=== PATIENT | female | born 1955 | race African-American/Black ===

== ENCOUNTER 2019-09-18 08:27 | Outpatient (CLI) | payer MEDICARE, SELFPAY ==
[2019-09-18 08:48] LABS: Basophils Percent Auto 0.4 % (0.2-1.2); Eosinophils Absolute Auto 0.1 K/mm3 (0-0.3); Eosinophils Percent Auto 0.9 % (0-4.4); Hematocrit 45.9 % (37.0-47.0); Hemoglobin 14.4 g/dL (12.0-15.0); Immature Granulocyte Absolute 0.02 K/mm3 (0.00-0.031); Immature Granulocyte Percent A 0.4 % (0-0.5); Lymphocytes Absolute Auto 1.53 K/mm3 (0.9-3.2); Lymphocytes Percent Auto 28.5 % (18.3-44.2); Mean Corpuscular HGB Conc 31.4 g/dl (32-36); Mean Corpuscular Hemoglobin 27.4 pg (26-34); Mean Corpuscular Volume 87.4 fl (80-100); Mean Platelet Volume 9.9 fl (7.4-10.4); Monocytes Absolute Auto 0.7 K/mm3 (0.1-0.6); Monocytes Percent Auto 12.1 % (2.6-8.5); Neutrophils Absolute Auto 3.1 K/mm3 (1.3-6.7); Neutrophils Percent Auto 57.7 % (45.5-73.1); Platelet Count Result 257 k/mm3 (150-375); Red Blood Count 5.25 M/mm3 (4.2-5.4); Red Cell Distribution Width 12.9 % (11.5-14.5); White Blood Count 5.4 K/mm3 (4.5-10.0)
[2019-09-18 08:58] LABS: Alanine Aminotransferase 17 U/L (4-35); Albumin Level 4.4 g/dL (3.5-5.1); Alkaline Phosphatase 124 U/L (38-126); Aspartate Amino Transferase 27 U/L (14-36); Bilirubin,Total 0.7 mg/dL (0.2-1.3); Blood Urea Nitrogen 18 mg/dL (7-17); Calcium 9.3 mg/dL (8.4-10.2); Carbon Dioxide 29 mmol/L (22-30); Chloride 104 mmol/L (98-107); Cholesterol 268 mg/dL (0-200); Estimated Glomerular Filt Rate > 60; Glucose 117 mg/dL (65-105); HDL Direct 60 mg/dL; Magnesium 2.1 mg/dL (1.6-2.3); Potassium 4.2 mmol/L (3.4-5.0); Sodium 139 mmol/L (137-145); Triglycerides 102 mg/dL (<150)
[2019-09-18 09:10] LABS: LDL Cholesterol Direct 172 mg/dL
[2019-09-18 10:29] LABS: Folic Acid > 20.0 ng/mL (2.76->20)
== END 2019-09-18 08:28 | disposition home or self-care (01) ==
PROVIDERS: PCP Internal Medicine; Visit Provider Internal Medicine
DX: E78.5 Hyperlipidemia, unspecified (principal); I10 Essential (primary) hypertension; R53.83 Other fatigue
CPT/HCPCS: 36415; 80053; 80061; 82607; 82746; 83735; 84443; 85025

== ENCOUNTER 2019-12-09 10:27 | Outpatient (CLI) | payer MEDICARE, SELFPAY ==
--- NOTE | ~2019-12-09 | MM_ITS ---
EXAMINATION: MM screening denis BI w william HISTORY: Screening mammogram, family history of breast cancer in her sister. TECHNIQUE: Craniocaudal and mediolateral oblique 3-D tomosynthesis images were obtained and synthetic 2-D images were generated. CAD analysis was submitted and interpreted. COMPARISON: 11/25/2018, 06/28/2017, 01/26/2016 BREAST PARENCHYMAL COMPOSITION: There are scattered areas of fibroglandular density. FINDINGS: There is no evidence of suspicious mass, calcification, or architectural distortion to sugg est malignancy in either breast. There has been no suspicious interval change. IMPRESSION: 1. No mammographic evidence of malignancy. 2. Recommend routine screening mammography in one year. BI-RADS Category 1: Negative Reviewed, dictated and finalized at location A.
== END 2019-12-09 10:28 | disposition home or self-care (01) ==
PROVIDERS: PCP Internal Medicine; Visit Provider Obstetrics & Gynecology
DX: Z12.31 Encounter for screening mammogram for malignant neoplasm of breast (principal)
CPT/HCPCS: 77063; 77067

== ENCOUNTER 2021-01-04 14:31 | Outpatient (CLI) | payer MEDICARE, SELFPAY ==
--- NOTE | ~2021-01-04 | MM_ITS ---
EXAMINATION: MM screening denis BI w william HISTORY: Screening mammogram TECHNIQUE: Craniocaudal and mediolateral oblique 3-D tomosynthesis images were obtained and synthetic 2-D images were generated. CAD analysis was submitted and interpreted. COMPARISON: 12/09/2019, 11/25/2018, 06/28/2017 bilateral screening mammogram examinations BREAST PARENCHYMAL COMPOSITION: The breasts are almost entirely fatty. FINDINGS: There is no evidence of suspicious mass, calcification, or architectural distortion to sugg est malignancy in either breast. There has been no suspicious interval change. IMPRESSION: 1. No mammographic evidence of malignancy. 2. Recommend routine screening mammography in one year. BI-RADS Category 1: Negative Reviewed, dictated and finalized at location A.
--- NOTE | ~2021-01-04 | DEXA_ITS ---
Bone Density Report Name: Yuli Price Age: 65 Sex: Female Ethnicity: Black Date of : 1955 Indication: postmenopausal; prior fracture; hysterectomy; Referring Provider: Chago Washington Study: Bone densitometry was performed. Exam Date: January 04, 2021 Accession number: [id number] Bone Density: Region BMD T-score Z-score Classification AP Spine (L2, L3, L4) 0.946 -1.2 -0.1 Osteopenia Femoral Neck (Left) 0.659 -1.7 -0.7 Osteopenia Total Hip (Left) 0.845 -0.8 -0.2 Normal World Health Organization criteria for BMD impression classify patients as: Normal (T-score at or above -1.0), Osteopenia (T-score between -1.0 and -2.5), or Osteoporosis (T-score at or below -2.5). 10-year Fracture Risk(1): Major Osteoporotic Fracture 6.0% Hip Fracture 0.7% Reported Risk Factors: [place] (Black), Neck BMD=0.659, BMI=48.6, previous fracture (1) FRAX(R) Version 3.08. Fracture probability calculated for an untreated patient. Fracture probability may be lower if the patient has received treatment. Previous Exams: Region Exam Age BMD T-score BMD Change BMD Change Date g/cm2 vs Baseline vs Previous AP Spine(L2, L3, L4) 01/04/2021 65 0.946 -1.2 -0.196(-17.2%) -0.024(-2.5%)* 08/15/2017 62 0.971 -1.0 -0.172(-15.1%) -0.142(-12.8%) 01/15/2012 56 1.113 0.3 -0.030(-2.6%)# -0.091(-7.6%)# 08/11/2009 54 1.205 1.1 0.062(5.4%)* 0.062(5.4%)* 07/10/2007 52 1.143 0.6 Total Hip(Left) 01/04/2021 65 0.845 -0.8 -0.165(-16.3%) -0.021(-2.5%)# 08/15/2017 62 0.867 -0.6 -0.144(-14.2%) -0.240(-21.7%) 01/15/2012 56 1.107 1.4 0.097(9.6%)# 0.065(6.3%)# 08/11/2009 54 1.042 0.8 0.031(3.1%)* 0.031(3.1%)* 07/10/2007 52 1.010 0.6 *Denotes significance at 95% confidence level, LSC for AP Spine = 0.022 g/cm2, LSC for Total Hip = 0.027 g/cm2 Clinical Information Provided by Patient: Has had a low trauma fracture Has used the following medications: HRT (i.e. estrogen/hormone therapy), Vitamin D, Calcium Has the following medical conditions: Hysterectomy Patient maximum height was 63 Menopause Age: 55 No regular weight bearing exercise Drinks caffeinated beverages Onset of menses at age 13 Number of children 3 Impression: The patient has low bone mass, based on the Left Femoral Neck T-score. The patient has an estimated ten-year risk of hip fracture of 0.7% and an estimated ten-year risk of major fracture of 6%, based on the WHO FRAX algorithm. The patient has risk factors, includi
== END 2021-01-04 14:32 | disposition home or self-care (01) ==
LOC: ANHIMG 14:34
PROVIDERS: PCP Internal Medicine; Visit Provider Obstetrics & Gynecology
DX: Z12.31 Encounter for screening mammogram for malignant neoplasm of breast (principal); Z78.0 Asymptomatic menopausal state; M85.852 Other specified disorders of bone density and structure, left thigh
CPT/HCPCS: 77063; 77067; 77080

== ENCOUNTER 2021-05-15 00:30 | Day surgery (SDC) | payer MEDICARE, SELFPAY ==
[2021-04-13 12:56] VITALS: BMI 49.1
--- NOTE | 2021-05-04 12:51 | PC.NURSE ---
PAT call done. Pt states no changes in health history or medication information since last PAT call done on 04-13-21. Instructions given to patient. Pt aware to arrive at 1100 and to take metoprolol the morning of colonoscopy. Verbalizes understanding. Questions answered.
--- NOTE | 2021-05-14 11:59 | WPDANESEPP ---
Anes - Eval Pre Procedure Procedure: Operation Date: 05/15/21 12:30 Proposed Procedures p Screening Colonoscopy - Nadeem Guillermo MD Date/Time: 05/14/21 11:59 Surgeon: Mima Pre Op Diagnosis: hx of colon polyps Patient Data Age: 66 Gender: F Height: 1.57 m Weight: 122 kg Allergies Allergy/AdvReac Type Severity Reaction Status Date / Time Penicillins Allergy Mild Unknown Verified 05/04/21 12:54 Home Medications Medication Instructions Recorded Confirmed Type aspirin 81 mg tablet,delayed 81 mg PO DAILY 02/16/19 05/04/21 History release amlodipine 2.5 mg tablet 2.5 mg PO DAILY #90 tablet 05/08/21 Rx metoprolol tartrate 25 mg tablet 25 mg PO BID #180 tablet 05/08/21 Rx valsartan 160 mg tablet 160 mg PO DAILY #30 tablet 05/08/21 Rx Patient hx anesthesia problems: none Family hx anesthesia problems: none Results Review: All pre-operative results and documents have been reviewed as part of the pre-operative evaluation. FORMERLY [facility], [facility] Past Medical History Medical History History of vaginal delivery Hyperlipidemia Hypertension Sleep apnea Surgical History Surgical History H/O section H/O: hysterectomy History of cholecystectomy S/P hip replacement Family History Family History Grandparent Diabetes mellitus Mother Hypertension Sibling Hypertension Carcinoma of colon Family history of malignant neoplasm of breast in first degree relative Social History Social History Smoking status: Never smoker Second hand tobacco smoke exposure: No Alcohol intake: current Drinks per week: 1 Substance use: never Substance use type: marijuana Living arrangements: with family Spiritual care concerns: No Exam Day of Procedure 05/14/21 11:59
[2021-05-15 11:09] VITALS: BP 163/82; PULSE 69; RESP 24; TEMP 36.1; O2SAT 100; BMI 48.0
[2021-05-15] MEDS: LACTATED RINGERS 1,000 ML 150 ML IV CONT (11:17)
--- NOTE | 2021-05-15 11:21 | P.PNAN_ITS ---
Anes - Eval Final PreProcedure Day of Procedure 05/15/21 11:21 Patient weight: morbidly obese Heart: regular rate and rhythm Lungs: clear to auscultation and normal air movement Airway: Mallampati scale class II Neurological: alert and oriented Last oral intake: >/= 8 hours ASA classification: III Emergent: no Anesthetic plan: proceed Anesthesia type and monitoring: general GIVS and standard monitoring Results Review: All pre-operative results and documents have been reviewed as part of the pre-operative evaluation. Informed Consent: The patient's anesthetic plan and its attendant risks and mallory efits were discussed with the patient/family/POA. Questions were solicited and answers provided to the satisfaction of the patient/family/POA.
--- NOTE | 2021-05-15 11:31 | WPDGICN ---
Assessment and Plan Assessment and plan (1) Family hx of colon cancer: Code(s): Z80.0 - Family history of malignant neoplasm of digestive organs Status: Acute Assessment and Plan: Patient has a family history of colon cancer in her sister. Patient herself had a colon polyp many years ago. Plan is for surveillance colonoscopy now and consider this at 5 year intervals in the future. (2) Obesity, Class III, BMI 40-49.9 (morbid obesity): Code(s): E66.01 - Morbid (severe) obesity due to excess calories Status: Acute Assessment and Plan: Weight loss with calorie restriction increased exercise are encouraged. GI Consult Note Consult date/time: 05/15/21 11:31 HPI: Yuli Price is a 66 year old female Presents for screening colonoscopy. Patient's family history is significant that her sister had colon cancer. Patient herself was found to have adenomatous colon polyp in 2006. Most recent colonoscopy 5 years ago was unremarkable. Patient presents today for screening colonoscopy. She states her weight appetite bowel movements are normal. She denies any blood in her stools. Review of Systems Review of Systems: All systems reviewed & are unremarkable except as noted in HPI and below PMFSH Past Medical History Medical History History of vaginal delivery Hyperlipidemia Hypertension Sleep apnea Surgical History Surgical History H/O section H/O: hysterectomy History of cholecystectomy S/P hip replacement Family History Family History Grandparent Diabetes mellitus Mother Hypertension Sibling Hypertension Carcinoma of colon Family history of malignant neoplasm of breast in first degree relative Social History Social History Smoking status: Never smoker Second hand tobacco smoke exposure: No Alcohol intake: current Drinks per week: 1 Substance use: never Substance use type: marijuana Living arrangements: with family Spiritual care concerns: No Meds Home Medications and Allergies Home Medications Medication Instructions Recorded Confirmed Type aspirin 81 mg tablet,delayed 81 mg PO DAILY 02/16/19 05/04/21 History release amlodipine 2.5 mg tablet 2.5 mg PO DAILY #90 tablet 05/08/21 05/15/21 Rx metoprolol tartrate 25 mg tablet 25 mg PO BID #180 tablet 05/08/21 05/15/21 Rx valsartan 160 mg tablet 160 mg PO DAILY #100 tablet 05/15/21 05/15/21 Rx Allergies Allergy/AdvReac Type Severity Reaction Status Date / Time Penicillins Allergy Mild Unknown Verified 05/15/21 11:08 Vital Signs Vital Signs - 24 hr 05/15/21 11:09 Temperature 97.0 F L Pulse Rate 69 Respiratory Rate 24 H Blood Pressure 163/82 H Pulse Oximetry 100 Exam Narrative: Physical exam reveals patient be alert. Vital signs stable. HEENT exam is unremarkable. Patient is anicteric. Lungs are clear to auscultation and percussion. Heart is without murmur or extra sounds. Abdominal exam Is obese. bowel sounds are present soft nontender with no organomegaly. Digital external rectal exam is normal.
[2021-05-15 11:58] VITALS: BP 137/76; PULSE 78; RESP 20; O2SAT 98
[2021-05-15 12:08] VITALS: BP 155/93; PULSE 84; RESP 25; O2SAT 99
[2021-05-15 12:18] VITALS: BP 164/89; PULSE 85; RESP 16; O2SAT 95
== END 2021-05-15 12:28 | disposition home or self-care (01) ==
PROVIDERS: PCP Internal Medicine; Visit Provider Internal Medicine Gastroenterology
PROC: 0DJD8ZZ Inspection of Lower Intestinal Tract, Via Natural or Artificial Opening Endoscopic (ICD-10-PCS; CPT 45378; principal; 2021-05-15 12:30)
DX: Z12.11 Encounter for screening for malignant neoplasm of colon (principal); D12.2 Benign neoplasm of ascending colon; Z80.0 Family history of malignant neoplasm of digestive organs; K64.8 Other hemorrhoids; E78.5 Hyperlipidemia, unspecified; I10 Essential (primary) hypertension; G47.30 Sleep apnea, unspecified; Z90.49 Acquired absence of other specified parts of digestive tract; F12.90 Cannabis use, unspecified, uncomplicated; Z79.82 Long term (current) use of aspirin; E66.01 Morbid (severe) obesity due to excess calories; Z68.42 Body mass index [BMI] 45.0-49.9, adult
CPT/HCPCS: 45380; 88305; J2704; J7120

== ENCOUNTER 2021-06-28 11:56 | Outpatient (CLI) | payer MEDICARE, SELFPAY ==
--- NOTE | 2021-06-28 12:10 | ECG_ITS ---
Measurements Intervals [place] Rate: 59 P: 27 TX: 161 QRS: -10 QRSD: 88 T: 123 QT: 395 QTc: 394 Interpretive Statements SINUS BRADYCARDIA NONSPECIFIC ST & T-WAVE ABNORMALITY BORDERLINE ECG NO PREVIOUS ECG AVAILABLE FOR COMPARISON Electronically Signed On 06-28-2021 18:07:03 CDT by Kirill Muir M.D.
== END 2021-06-28 11:57 | disposition home or self-care (01) ==
LOC: ANHCARD 11:57
PROVIDERS: PCP Internal Medicine; Visit Provider Internal Medicine
DX: R00.1 Bradycardia, unspecified (principal); I10 Essential (primary) hypertension
CPT/HCPCS: 93005

== ENCOUNTER 2021-06-30 11:50 | Outpatient (CLI) | payer MEDICARE, SELFPAY ==
[2021-06-30 12:36] LABS: Hemoglobin A1C 5.5 % (<5.7)
[2021-06-30 12:38] LABS: Alanine Aminotransferase 17 U/L (4-35); Albumin Level 4.4 g/dL (3.5-5.1); Alkaline Phosphatase 129 U/L (38-126); Anion Gap 5 mmol/L (8-16); Aspartate Amino Transferase 25 U/L (14-36); Bilirubin,Total 1.1 mg/dL (0.2-1.3); Blood Urea Nitrogen 14 mg/dL (7-17); Calcium 9.1 mg/dL (8.4-10.2); Carbon Dioxide 30 mmol/L (22-30); Chloride 104 mmol/L (98-107); Cholesterol 266 mg/dL (0-200); Estimated Glomerular Filt Rate > 60; Glucose 104 mg/dL (65-110); HDL Direct 53 mg/dL; Magnesium 2.1 mg/dL (1.6-2.3); Sodium 139 mmol/L (137-145); Triglycerides 115 mg/dL (<150)
[2021-06-30 12:48] LABS: LDL Cholesterol Direct 159 mg/dL
[2021-06-30 13:43] LABS: Folic Acid 14.5 ng/mL (2.76->20)
== END 2021-06-30 11:51 | disposition home or self-care (01) ==
LOC: ANHLAB 11:52
PROVIDERS: PCP Internal Medicine; Visit Provider Internal Medicine
DX: I10 Essential (primary) hypertension (principal); E78.49 Other hyperlipidemia; R53.83 Other fatigue; R73.9 Hyperglycemia, unspecified
CPT/HCPCS: 36415; 80053; 80061; 82607; 82746; 83036; 83735; 84443

== ENCOUNTER 2021-07-05 14:51 | Outpatient (CLI) | payer MEDICARE, SELFPAY ==
[2021-07-05 15:14] LABS: Basophils Absolute Auto 0.1 K/mm3 (0.0-0.1); Basophils Percent Auto 0.8 % (0.2-1.2); Eosinophils Absolute Auto 0.1 K/mm3 (0-0.3); Eosinophils Percent Auto 1.5 % (0-4.4); Hematocrit 46.6 % (37.0-47.0); Hemoglobin 14.3 g/dL (12.0-15.0); Immature Granulocyte Absolute 0.02 K/mm3 (0.00-0.031); Immature Granulocyte Percent A 0.3 % (0-0.5); Lymphocytes Absolute Auto 2.05 K/mm3 (0.9-3.2); Lymphocytes Percent Auto 34.5 % (18.3-44.2); Mean Corpuscular HGB Conc 30.7 g/dl (32-36); Mean Corpuscular Hemoglobin 27.7 pg (26-34); Mean Corpuscular Volume 90.3 fl (80-100); Mean Platelet Volume 9.7 fl (7.4-10.4); Monocytes Absolute Auto 0.9 K/mm3 (0.1-0.6); Monocytes Percent Auto 15.1 % (2.6-8.5); Neutrophils Absolute Auto 2.8 K/mm3 (1.3-6.7); Neutrophils Percent Auto 47.8 % (45.5-73.1); Platelet Count Result 254 k/mm3 (150-375); Red Blood Count 5.16 M/mm3 (4.2-5.4); Red Cell Distribution Width 12.9 % (11.5-14.5)
== END 2021-07-05 14:52 | disposition home or self-care (01) ==
LOC: ANHLAB 14:56
PROVIDERS: PCP Internal Medicine; Visit Provider Internal Medicine
DX: R53.83 Other fatigue (principal); R73.9 Hyperglycemia, unspecified; E78.49 Other hyperlipidemia; I10 Essential (primary) hypertension
CPT/HCPCS: 36415; 85025

== ENCOUNTER 2022-01-15 11:00 | Outpatient (CLI) | payer MEDICARE, SELFPAY ==
--- NOTE | ~2022-01-15 | MM_ITS ---
EXAMINATION: MM screening denis BI w william HISTORY: Screening mammogram TECHNIQUE: Craniocaudal and mediolateral oblique 3-D tomosynthesis images were obtained and synthetic 2-D images were generated. CAD analysis was submitted and interpreted. COMPARISON: 01/04/2021, 12/09/2019, 11/25/2018 bilateral screening mammogram examinations BREAST PARENCHYMAL COMPOSITION: The breasts are almost entirely fatty. FINDINGS: There is no evidence of suspicious mass, calcification, or architectural distortion to sugg est malignancy in either breast. There has been no suspicious interval change. IMPRESSION: 1. No mammographic evidence of malignancy. 2. Recommend routine screening mammography in one year. BI-RADS Category 1: Negative Reviewed, dictated and finalized at location A. CHILI
== END 2022-01-15 11:01 | disposition home or self-care (01) ==
LOC: ANHIMG 11:01
PROVIDERS: PCP Internal Medicine; Visit Provider Obstetrics & Gynecology
DX: Z12.31 Encounter for screening mammogram for malignant neoplasm of breast (principal)
CPT/HCPCS: 77063; 77067

== ENCOUNTER 2023-03-22 10:30 | Outpatient (CLI) | payer MEDICARE, SELFPAY ==
--- NOTE | ~2023-03-22 | NM_ITS ---
EXAMINATION: NM harrison stress w perfusion DATE: 03/22/2023 12:37 INDICATION: Chest pain and shortness of breath TECHNIQUE: Rest images were obtained following intravenous administration of 10.2 mCi Tc99m tetrofosm in (Myoview). The patient was infused intravenously with Lexiscan (Regadenoson). Then, 32 mCi Tc99m t etrofosmin (Myoview) was administered intravenously, and stress images were obtained. Data was recons tructed into short axis and horizontal and vertical long axis SPECT images. Gated SPECT images were a lso obtained. COMPARISON: None. FINDINGS: There is no definite reversible or fixed perfusion abnormality to suggest ischemia or infar ction. There is normal left ventricular chamber size, wall motion and ejection fraction. Left ventr icular ejection fraction measures >70%. IMPRESSION: 1. Normal myocardial perfusion at rest and during stress. 2. Left ventricular ejection fraction measuring >70%. Reviewed, dictated and finalized at location A. LE ROUNDER OPERATOR
--- NOTE | 2023-03-22 10:58 | EST_ITS ---
Patient Info Name: Yuli Price Age: 68 years : 1955 Gender: Female Ht: 62 in Wt: 270 lbs BSA: 2.39 m2 HR: 63 bpm BP: 170 / 84 mmHg Heart Rhythm: Sinus Rhythm Exam Date: 03/22/2023 11:43 AM Exam Location: [facility] Patient Status: Outpatient Admit Date: 03/22/2023 Staff Ordering Physician: Chucho Guzman PA-C Attending Provider: Chucho Guzman PA-C Exercise Technologist: Silvina Reynoso CT Exercise Physician: Gonsalo Parker DO Exam Type: CA stress harrison w NM Study Info Indications R07.89 - Other chest pain A regadenoson stress test was performed. Summary 1. 1. Negative lexiscan stress test for ischemic ST changes by ECG criteria. 2. 2. Baseline hypertension. 3. 3. Nuclear scan to follow and will be reported separately. Please correlate with it. 4. 4. Patient informed of the above results. Protocol: Lexiscan Stress ECG Details Stage: REST Duration (min): 2 min : 7 sec HR (bpm): 67 SBP (mmHg): 170 DBP (mmHg): 84 Stage: REST Duration (min): 7 min : 34 sec HR (bpm): 61 SBP (mmHg): 170 DBP (mmHg): 84 Stage: STAGE 1 Duration (min): 0 min : 59 sec HR (bpm): 92 SBP (mmHg): 170 DBP (mmHg): 84 Stage: RECOVERY Duration (min): 1 min : 0 sec HR (bpm): 92 SBP (mmHg): 197 DBP (mmHg): 75 Stage: RECOVERY Duration (min): 2 min : 0 sec HR (bpm): 80 SBP (mmHg): 197 DBP (mmHg): 75 Stage: RECOVERY Duration (min): 3 min : 0 sec HR (bpm): 72 SBP (mmHg): 197 DBP (mmHg): 75 Stage: RECOVERY Duration (min): 3 min : 35 sec HR (bpm): 69 SBP (mmHg): 193 DBP (mmHg): 83 Rest HR: 61 bpm Peak HR: 97 bpm Rest Sys BP: 170 mmHg Peak Sys BP: 197 mmHg Max Pred HR: 152 bpm % Max Pred HR: 64 % Target HR: 129 bpm Max RPP: 19,109 bpm*mmHg Termination Reason: Completed protocol Cardiac Symptoms: Shortness of breath Total Time: 1 min : 0 sec Rest Colvin BP: 84 mmHg Peak Colvin BP: 75 mmHg Total Dose: 0.4 mg Resting ECG Sinus rhythm. Stress ECG No ST changes. Arrhythmias None. Report Signatures
== END 2023-03-22 10:31 | disposition home or self-care (01) ==
PROVIDERS: PCP Internal Medicine; Visit Provider Physician Assistant
DX: R07.9 Chest pain, unspecified (principal); R06.02 Shortness of breath
CPT/HCPCS: 78452; 93017; A9502; J2785

== ENCOUNTER 2023-03-29 13:27 | Outpatient (CLI) | payer MEDICARE, SELFPAY ==
--- NOTE | ~2023-03-29 | DEXA_ITS ---
Bone Density Report Name: MARLI ISAACS Age: 68 Sex: Female Ethnicity: Black Date of : 1955 Indication: postmenopausal; screening for osteoporosis; hysterectomy; Referring Provider: GLENROY STONE Study: Bone densitometry was performed. Exam Date: March 29, 2023 Accession number: [id number] Bone Density: Region BMD T-score Z-score Classification AP Spine(L1-L4) 0.878 -1.5 -0.3 Osteopenia World Health Organization criteria for BMD impression classify patients as: Normal (T-score at or above -1.0), Osteopenia (T-score between -1.0 and -2.5), or Osteoporosis (T-score at or below -2.5). Clinical Information Provided by Patient: Has the following medical conditions: Hysterectomy Patient maximum height was 62.5 Menopause Age: 55 Drinks caffeinated beverages Onset of menses at age 13 Number of children 3 Impression: The patient has low bone mass, based on the Total Spine T-score. Discussion: BONE DENSITY IS LOW AT ONE OR MORE SKELETAL SITES. This patient's lowest T-score is low at one or more skeletal sites. It meets the World Health Organization's (WHO) criteria for ?low bone mass? (T-score between -1.0 and -2.5). The patient's 10-year risk of fracture as calculated by FRAX is less than the threshold where pharmacological therapy is recommended by the National Osteoporosis Foundation (NOF). However, all treatment decisions require clinical judgment and consideration of individual patient factors, including patient preferences, comorbidities, previous drug use, risk factors not captured in the FRAX model (e.g., frailty, falls, vitamin D deficiency, increased bone turnover, interval significant decline in bone density) and possible under or overestimation of fracture risk by FRAX. The patient should follow a healthful lifestyle (good nutrition with adequate calcium and vitamin D, and appropriate weight-bearing exercise). Follow-Up: Consider repeating this study in 2 to 3 years to reassess this patient's status, or sooner if there is some new clinical indication. Reported by: BOOGIE on 03/29/2023 1:45:00 PM. Reviewed, dictated and finalized at location ARodolfo GLYNN
== END 2023-03-29 13:28 | disposition home or self-care (01) ==
LOC: ANHIMG 13:28
PROVIDERS: PCP Internal Medicine; Visit Provider Obstetrics & Gynecology
DX: M85.88 Other specified disorders of bone density and structure, other site (principal)
CPT/HCPCS: 77080

== ENCOUNTER 2023-06-24 16:29 | Outpatient (CLI) | payer MEDICARE, SELFPAY ==
--- NOTE | ~2023-06-24 | CT_ITS ---
EXAMINATION: CT brain wo con DATE: 06/24/2023 17:30 INDICATION: Headache, unspecified. TECHNIQUE: Computed tomography (CT) of the head was performed without intravenous contrast. The mA wa s adjusted according to patient size. Iterative reconstruction technique was employed. The dose-lengt h product was 681.00 mGy-cm. COMPARISON: None FINDINGS: There is no intracranial hemorrhage, acute infarction, or abnormal intracranial mass lesion . The ventricles are normal in size. The orbits are normal. There is mild mucosal thickening in the p aranasal sinuses. The mastoid air cells are normal. IMPRESSION: 1. Normal brain. Reviewed, dictated and finalized at location E. IMPRESSION: 1. Normal brain.
== END 2023-06-24 16:30 | disposition home or self-care (01) ==
LOC: ANHIMG 16:34
PROVIDERS: PCP Internal Medicine; Visit Provider Internal Medicine
DX: R51.9 Headache, unspecified (principal)
CPT/HCPCS: 70450

== ENCOUNTER 2023-06-25 14:21 | Outpatient (CLI) | payer MEDICARE, SELFPAY ==
--- NOTE | ~2023-06-25 | MM_ITS ---
EXAMINATION: MM screening denis BI w william HISTORY: Screening TECHNIQUE: Craniocaudal and mediolateral oblique 3-D tomosynthesis images were obtained and synthetic 2-D images were generated. CAD analysis was submitted and interpreted. COMPARISON: Comparison to multiple prior studies sequentially, with oldest reviewed study dated 12/08. BREAST PARENCHYMAL COMPOSITION: Not Dense: Breast are almost entirely fatty. FINDINGS: There is no evidence of suspicious mass, calcification, or architectural distortion to sugg est malignancy in either breast. There has been no suspicious interval change. IMPRESSION: 1. No mammographic evidence of malignancy. 2. Recommend routine screening mammography in one year. BI-RADS Category 1: Negative Reviewed, dictated and finalized at location B.
== END 2023-06-25 14:22 | disposition home or self-care (01) ==
PROVIDERS: PCP Internal Medicine; Visit Provider Obstetrics & Gynecology
DX: Z12.31 Encounter for screening mammogram for malignant neoplasm of breast (principal)
CPT/HCPCS: 77063; 77067

== ENCOUNTER 2024-06-15 10:07 | Outpatient (CLI) | payer MEDICARE, SELFPAY ==
[2024-06-15 11:03] LABS: Hemoglobin 14.3 g/dL (12.0-15.0); Mean Corpuscular HGB Conc 30.4 g/dl (32-36); Mean Corpuscular Hemoglobin 27.5 pg (26-34); Mean Corpuscular Volume 90.4 fl (80-100); Platelet Count Result 262 k/mm3 (150-375); Red Cell Distribution Width 12.7 % (11.5-14.5); White Blood Count 4.3 K/mm3 (4.5-10.0)
--- OUTSIDE RECORDS SUMMARY | 2024-06-15 11:23 | XMS_ITS | CONTINUITY OF CARE DOCUMENT ---
Author Name yosef navas Address Unknown Organization [facility] Address [address] [place] [address] Phone [phone] Care Team Providers Care Auto Tester Name Role Phone Monisha Alvarado MD Unavailable CARLIE ISRAEL MD Unavailable CARLIE ISRAEL MD Unavailable INSURANCE PROVIDERS Payer name Policy type / Coverage type [place] [employer] ID [employer] MEDICARE COMPLETE HMO Other [id number]
[2024-06-15 11:45] LABS: Alanine Aminotransferase 17 U/L (6-35); Albumin Level 4.1 g/dL (3.5-5.1); Alkaline Phosphatase 140 U/L (38-126); Anion Gap 7 mmol/L (4-12); Aspartate Amino Transferase 23 U/L (14-36); Bilirubin,Total 0.9 mg/dL (0.2-1.3); Blood Urea Nitrogen 19 mg/dL (7-17); Carbon Dioxide 30 mmol/L (22-30); Chloride 103 mmol/L (98-107); Cholesterol 220 mg/dL (0-200); Estimated Glomerular Filt Rate > 60; Glucose 98 mg/dL (65-110); HDL Direct 58 mg/dL; Potassium 4.1 mmol/L (3.4-5.0); Sodium 140 mmol/L (137-145); Triglycerides 89 mg/dL (<150)
[2024-06-15 11:55] LABS: LDL Cholesterol Direct 119 mg/dL
[2024-06-15 13:07] LABS: Hemoglobin A1C 5.6 % (<5.7)
== END 2024-06-15 10:08 | disposition home or self-care (01) ==
PROVIDERS: PCP Internal Medicine; Visit Provider Nurse Practitioner
DX: R73.9 Hyperglycemia, unspecified (principal); E78.5 Hyperlipidemia, unspecified; R53.83 Other fatigue; I10 Essential (primary) hypertension; E66.01 Morbid (severe) obesity due to excess calories
CPT/HCPCS: 36415; 80053; 80061; 83036; 84443; 85027

== ENCOUNTER 2025-02-05 13:32 | Outpatient (CLI) | payer MEDICARE, SELFPAY ==
[2025-02-05 14:20] LABS: Alanine Aminotransferase 15 U/L (6-35); Albumin Level 4.0 g/dL (3.5-5.1); Alkaline Phosphatase 112 U/L (38-126); Anion Gap 2 mmol/L (4-12); Aspartate Amino Transferase 27 U/L (14-36); Bilirubin,Total 1.1 mg/dL (0.2-1.3); Blood Urea Nitrogen 17 mg/dL (7-17); Calcium 9.1 mg/dL (8.4-10.2); Carbon Dioxide 31 mmol/L (22-30); Chloride 102 mmol/L (98-107); Cholesterol 249 mg/dL (0-200); Estimated Glomerular Filt Rate > 60; Glucose 91 mg/dL (65-110); HDL Direct 58 mg/dL; Magnesium 2.2 mg/dL (1.6-2.3); Potassium 4.2 mmol/L (3.4-5.0); Sodium 135 mmol/L (137-145); Total Protein 8.0 g/dL (6.3-8.2); Triglycerides 113 mg/dL (<150)
[2025-02-05 14:22] LABS: Hemoglobin A1C 5.7 % (<5.7)
== END 2025-02-05 13:33 | disposition home or self-care (01) ==
PROVIDERS: PCP Internal Medicine; Visit Provider Internal Medicine
DX: E78.5 Hyperlipidemia, unspecified (principal); I10 Essential (primary) hypertension; E78.49 Other hyperlipidemia; R73.9 Hyperglycemia, unspecified; R25.2 Cramp and spasm; R74.8 Abnormal levels of other serum enzymes
CPT/HCPCS: 36415; 80053; 80061; 83036; 83735; 86381